=== PATIENT | male | born 1975 ===

== ENCOUNTER 2021-04-09 08:28 | Outpatient (REF) | payer OTHER, SELFPAY ==
[2021-04-09 11:46] LABS: Hematocrit 47.1 % (42.0-52.0); Hemoglobin 15.8 g/dl (14.0-18.0); Mean Corpuscular HGB Conc 33.5 g/dl (31.0-36.0); Mean Corpuscular Hemoglobin 29.9 pg (27.0-33.0); Mean Platelet Volume 11.1 fL (9.4-12.4); Platelet Count 267 X10*3/uL (160-400); Red Blood Count 5.29 X10*6/uL (4.60-5.80); Red Cell Distribution Width 13.1 % (11.0-16.0); White Blood Count 6.7 X10*3/uL (4.8-10.8)
[2021-04-09 12:38] LABS: Alanine Aminotransferase 35 U/L (0-40); Albumin Level 4.2 g/dL (3.5-5.0); Alkaline Phosphatase 92 U/L (39-117); Anion Gap 13 (12-20); Aspartate Amino Transferase 23 U/L (5-37); Bilirubin Total 0.9 mg/dL (0.0-1.0); Blood Urea Nitrogen 15 mg/dL (9-16); Calcium 9.8 mg/dL (8.4-10.2); Carbon Dioxide 26 mmol/L (22-29); Chloride 105 mmol/L (96-108); Cholesterol 186 mg/dL; Estimated Glomerular Filt Rate > 60; Glucose Fasting 88 mg/dL (60-99); HDL Cholesterol 34 mg/dL; LDL Cholesterol Calculated 110 mg/dl; Potassium 4.3 mmol/L (3.3-5.1); Sodium 140 mmol/L (135-145); Total Protein 7.6 g/dL (6.5-8.0); Triglycerides 213 mg/dL
== END 2021-04-09 08:29 | disposition home or self-care (01) ==
LOC: HO.HMGCLDS 08:28
PROVIDERS: PCP Internal Medicine; Visit Provider Internal Medicine
DX: E78.5 Hyperlipidemia, unspecified (principal)
CPT/HCPCS: 36415; 80053; 80061; 85027

== ENCOUNTER 2022-01-22 10:00 | Outpatient (REF) | payer OTHER, SELFPAY ==
[2022-01-22 11:43] LABS: Cholesterol 225 mg/dL; HDL Cholesterol 40 mg/dL; LDL Cholesterol Calculated 154 mg/dl; Triglycerides 155 mg/dL
== END 2022-01-22 10:01 | disposition home or self-care (01) ==
LOC: HO.HMGCLDS 10:00
PROVIDERS: PCP Internal Medicine; Visit Provider Internal Medicine
DX: E78.5 Hyperlipidemia, unspecified (principal)
CPT/HCPCS: 36415; 80061

== ENCOUNTER 2023-06-09 07:37 | Outpatient (AMB) | payer OTHER, SELFPAY ==
--- NOTE | 2023-06-09 08:01 | MHC.PC.OV ---
Vital Signs 06/09/23 08:02 Height 5 ft 10 in Weight 203 lb BMI 29.1 BP 144/94 H Blood Pressure Location Lt brachial Position Sitting Pulse 79 Pulse Source Pulse Oximeter Pulse Oximetry (%) 96 Oxygen Delivery Method Room Air Intake Visit Reasons: Blocked ear Intake Note: Pt is here today for a PE. Pt states that he has R ear blocked for last 2 months. Allergies No Known Allergies Allergy (Verified 06/09/23 08:05) Medication List - Last Reconciled 06/09/23 by Therese Sheridan MD lorazepam 1 mg PO DAILY PRN pravastatin 20 mg PO DAILY Tobacco use date assessed: 06/09/23 Dental Screening Dental Screen Date: 06/09/23 Did you have a dental visit in the last 12 months?: Yes Did you have a dental problem in the last 6 months where you did not have access to dental care?: No Was dental information given to patient?: Patient has dentist HPI Blocked ear HPI Details Pt presents for PE. Pt c/o persistent blocked right ear and decreased hearing for 6 weeks since URI. Pt took steroids for 4 days which helped for 1 day. [facility] [place] Medical History (Updated 06/09/23 @ 08:36 by Therese Sheridan MD) Annual physical exam Hyperlipidemia Surgical History No pertinent past surgical history Family History Father No problems noted. Mother No problems noted. Brother Cardiomyopathy Social History Housing: House Patient Tobacco Use Status: Current someday Tobacco user Tobacco use type: Cigarette Cigarettes Per Day: 3 e-Cigarette/Vaping Use: Never Used Current occupational status: employed Cognitive needs: No Hearing needs: No Vision needs: No Questionnaire PHQ-9 Over the last 2 weeks, how often have you been bothered by any of the following problems? 1. Little interest or pleasure in doing things: not at all 2. Feeling down, depressed, or hopeless: not at all 3. Trouble falling or staying asleep, or sleeping too much: not at all 4. Feeling tired or having little energy: not at all 5. Poor appetite or overeating: not at all 6. Feeling bad about yourself - or that you are a failure or have let yourself or your family down: not at all 7. Trouble concentrating on things, such as reading the newspaper or watching television: not at all 8. Moving or speaking so slowly that other people could have noticed. Or the opposite - being so fidgety or restless that you have been moving around a lot more than usual: not at all 9. Thoughts that you would be better off or of hurting yourself in some way: not at all Total score: 0 Depression Screening Interpretation: Negative Depression Screening Done: Yes Source: Developed by Drs. Kit Baptiste, Francia Sol, Adal Ferraro and colleagues, with an educational maria teresa from [employer] ([employer]). Thrive Questionnaire Date Thrive assessed: 06/09/23 I am a: Patient What is your living situation today?: I have a steady place to live Within the past 12 months, did the food you bought not last and you didn't have the money to get more?: Never true Within the past 12 months, did you worry whether your food would run out before you got money to buy more?: Never true Do you have trouble paying for medicines?: No Do you have trouble getting transportation to medical appointments?: No Do you have trouble paying your heating and electricity bill?: No Do you have trouble taking care of your child, family member or friend?: No Do you have trouble with day-to-day activities such as bathing, preparing meals, shopping, managing finances, etc.?: No Are you currently unemployed and looking for a job?: No Are you interested in more education?: No THRIVE Score: 0 AUDIT C Alcohol Use Questionnaire (AUDIT-C) 1. How often do you have a drink containing alcohol?: Monthly or less 2. How many drinks containing alcohol do you have on a typical day when you are drinking?: 1 or 2 3. How often do you have six or more drinks on one occasion?: Never Total Score: 1 MADDIE-7 AMB Questionnaire MADDIE-7 Date MADDIE - 7 assessed: 06/09/23 Feeling nervous, anxious, or on edge: 0 = Not at all Not being able to stop or control worryin = Not at all Worrying too much about different things: 0 = Not at all Trouble relaxin = Not at all Being so restless that it is hard to sit still: 0 = Not at all Becoming easily annoyed or irritable: 0 = Not at all Feeling afraid as if something awful might happen: 0 = Not at all Total MADDIE-7 score (0-4 normal; 5-9 mild; 10-14 moderate; 15-21 severe): 0 Source: Developed by Drs. Kit Baptiste, Francia Sol, Adal Ferraro and colleagues, with an educational maria teresa from [employer] ([employer]). Review of Systems Const All systems reviewed & are unremarkable except as noted in HPI and below Reports no additional complaints Eyes Reports no additional complaints ENT Reports no additional complaints Card Reports no additional complaints Resp Reports no additional complaints GI Reports no additional complaints Reports no additional complaints Musc Reports no additional complaints Physical exam (Primary Care) Vital Signs: Last Vital Signs Pulse 79 06/09/23 08:02 BP 144/94 H 06/09/23 08:02 Pulse Ox 96 06/09/23 08:02 Oxygen Delivery Method Room Air 06/09/23 08:02 BMI result Body Mass Index 29.1 Tobacco/Smoking Status: Tobacco use Status Tobacco use date assessed 06/09/23 06/09/23 08:08 Patient Tobacco Use Status Current someday Tobacco 06/09/23 08:08 Tobacco use type Cigarette 06/09/23 08:08 e-Cigarette/Vaping Use Never Used 06/09/23 08:02 PHQ-9: PHQ-9 Score PHQ-9: Total score 0 06/09/23 08:08 Depression Screening Interpretation: Negative Thrive Assessment: Date of Thrive Assessment Date Thrive assessed 06/09/23 06/09/23 08:08 Const General: no acute distress HENMT Head: Yes normal to inspection Ears: TM's normal bilaterally, no periauricular adenopathy and Quintana (Lateralized in the right ear) General nose exam: Normal external nose present Face and sinus: Yes normal facial exam Mouth: Normal oral and palatal mucosa present Throat: Yes posterior oropharynx normal Eyes General: appearance normal, both eyes and all related structures Neck Neck: Yes no lymphadenopathy and Yes supple Resp Effort & Inspection: normal respiratory effort Auscultation: clear to auscultation bilaterally Cardio Rhythm: regular rhythm Heart sounds: S1 normal heart sound present and S2 normal heart sound present GI Inspection: Yes normal to inspection Palpation (GI): Soft to palpation Percussion: Yes normal to percussion Auscultation: normal bowel sounds Assessment and Plan Assessment & Plan (1) Annual physical exam: Code(s): Z00.00 - Encounter for general adult medical examination without abnormal findings Plan: Well-balanced diet regular physical activity discussed with the patient (2) Hyperlipidemia: Comment: Patient has stopped taking pravastatin 6 months ago Code(s): E78.5 - Hyperlipidemia, unspecified Plan: Low-cholesterol diet regular physical activity discussed with the patient. He will return for fasting blood (3) HTN (hypertension): Code(s): I10 - Essential (primary) hypertension Plan: Low-sodium diet regular physical activity discussed with the patient lisinopril 5 mg will be started follow-up in 1 month (4) Hearing loss associated with syndrome of right ear: Code(s): H91.91 - Unspecified hearing loss, right ear Plan: For Eustachian tube dysfunction prednisone taper is prescribed. patient was advised to start taking antihistamine and will be referred to ENT Orders: Orders Comprehensive [place]. Panel Fast Today E78.5 - Hyperlipidemia, unspecified, I10 - Essential (primary) hypertension, Z00.00 - Encounter for general adult medical examination without abnormal findings TSH reflex Free T4 Today E78.5 - Hyperlipidemia, unspecified, I10 - Essential (primary) hypertension, Z00.00 - Encounter for general adult medical examination without abnormal findings Complete Blood Count Auto Diff Today E78.5 - Hyperlipidemia, unspecified, I10 - Essential (primary) hypertension, Z00.00 - Encounter for general adult medical examination without abnormal findings Lipid Panel Today E78.5 - Hyperlipidemia, unspecified, I10 - Essential (primary) hypertension, Z00.00 - Encounter for general adult medical examination without abnormal findings Referrals Ear/Nose/Throat Referral H91.91 - Unspecified hearing loss, right ear Medications: New prednisone Four tablets p.o. q.d. for 3 days then 3 tablets p.o. q.d. for 3 days then 2 tablets p.o. q.d. for 3 days then 1 tablet p.o. q.d. for 3 days 30 tabs 0RF lisinopril 5 mg PO DAILY 90 tabs 0RF Discontinued lorazepam Discontinued Reason: Doctor's Order 1 mg PO DAILY PRN 30 tabs 0RF anxiety Coding Level of Care Code Est Pt Prev Care 40-64y(67396) Diagnoses Annual physical exam Z00.00 Hyperlipidemia E78.5 HTN (hypertension) I10 Hearing loss associated with syndrome of right ear H91.91
[2023-06-09 08:02] VITALS: BP 144/94; PULSE 79; O2SAT 96; BMI 29.1
== END 2023-06-09 08:39 | disposition home or self-care (01) ==
PROVIDERS: PCP Internal Medicine; Visit Provider Internal Medicine
DX: Z00.00 Encounter for general adult medical examination without abnormal findings (principal); E78.5 Hyperlipidemia, unspecified; I10 Essential (primary) hypertension; H91.91 Unspecified hearing loss, right ear
CPT/HCPCS: 99396

== ENCOUNTER 2023-07-09 08:06 | Outpatient (REF) | payer OTHER, SELFPAY ==
[2023-07-09 11:38] LABS: MANUAL DIFF FLAG NO
[2023-07-09 11:43] LABS: Basophils Percent Auto 0.7 % (0-2); Eosinophils Absolute Auto 0.2 X10*3/uL (0.0-0.4); Eosinophils Percent Auto 3.3 % (0-4); Hematocrit 47.7 % (42.0-52.0); Imm Gran Abs Auto 0.02 X10*3/uL (0.00-0.03); Imm Gran Pct Auto 0.3 % (0.0-0.4); Lymphocytes Absolute Auto 2.1 X10*3/uL (1.2-4.9); Lymphocytes Percent Auto 35.3 % (20-40); Mean Corpuscular HGB Conc 33.5 g/dl (31.0-36.0); Mean Corpuscular Hemoglobin 30.1 pg (27.0-33.0); Mean Corpuscular Volume 89.7 fL (80.0-98.0); Mean Platelet Volume 10.9 fL (9.4-12.4); Monocytes Absolute Auto 0.6 X10*3/uL (0.1-1.2); Monocytes Percent Auto 9.7 % (2-11); Neutrophils Absolute Auto 3.1 x10*3/uL (2.0-8.3); Neutrophils Percent Auto 50.7 % (45-73); Platelet Count 256 X10*3/uL (160-400); Red Blood Count 5.32 X10*6/uL (4.60-5.80); Red Cell Distribution Width 13.7 % (11.0-16.0)
[2023-07-09 12:18] LABS: Alanine Aminotransferase 41 U/L (0-40); Albumin Level 4.1 g/dL (3.5-5.0); Alkaline Phosphatase 70 U/L (39-117); Anion Gap 11 (12-20); Aspartate Amino Transferase 25 U/L (5-37); Bilirubin Total 0.7 mg/dL (0.0-1.0); Blood Urea Nitrogen 20 mg/dL (9-16); Calcium 9.7 mg/dL (8.4-10.2); Carbon Dioxide 26 mmol/L (22-29); Chloride 105 mmol/L (96-108); Cholesterol 248 mg/dL (<200); Estimated Glomerular Filt Rate > 60; Glucose Fasting 88 mg/dL (60-99); HDL Cholesterol 35 mg/dL (>40); LDL Cholesterol Calculated 191 mg/dL (<100); Potassium 4.1 mmol/L (3.3-5.1); Sodium 138 mmol/L (135-145); Total Protein 7.6 g/dL (6.5-8.0); Triglycerides 113 mg/dL (<150)
[2023-07-09 12:19] LABS: TSH reflex Free T4 1.05 uIU/mL (0.32-4.0)
== END 2023-07-09 08:07 | disposition home or self-care (01) ==
LOC: HO.HMGCLDS 08:06
PROVIDERS: PCP Internal Medicine; Visit Provider Internal Medicine
DX: Z00.00 Encounter for general adult medical examination without abnormal findings (principal); E78.5 Hyperlipidemia, unspecified; I10 Essential (primary) hypertension
CPT/HCPCS: 36415; 80053; 80061; 84443; 85025

== ENCOUNTER 2023-07-15 11:15 | Outpatient (AMB) | payer OTHER, SELFPAY ==
--- NOTE | 2023-07-15 11:17 | MHC.PC.OV ---
Vital Signs 07/15/23 11:23 Height 5 ft 10 in Weight 205 lb BMI 29.4 BP 126/84 Blood Pressure Location Lt brachial Position Sitting Pulse 68 Pulse Source Pulse Oximeter Pulse Oximetry (%) 98 Oxygen Delivery Method Room Air Intake Visit Reasons: 1 month follow up Intake Note: Pt is here today for a follow up visit on BP. Allergies No Known Allergies Allergy (Verified 06/09/23 08:05) Medication List - Last Reconciled 07/15/23 by Therese Sheridan MD fish oil-dha-epa PO Tobacco use date assessed: 06/09/23 HPI 1 month follow up HPI Details Patient presents for the follow-up on hypertension hyperlipidemia. He has not been taking medications and is trying to change diet increase physical activity and lose weight. [facility] Medical History (Updated 07/15/23 @ 11:54 by Therese Sheridan MD) Annual physical exam Hyperlipidemia Surgical History No pertinent past surgical history Family History Father No problems noted. Mother No problems noted. Brother Cardiomyopathy Social History Housing: House Patient Tobacco Use Status: Current someday Tobacco user Tobacco use type: Cigarette Cigarettes Per Day: 3 e-Cigarette/Vaping Use: Never Used Current occupational status: employed Cognitive needs: No Hearing needs: No Vision needs: No Questionnaire Thrive Questionnaire Date Thrive assessed: 06/09/23 MADDIE-7 AMB Questionnaire MADDIE-7 Date MADDIE - 7 assessed: 06/09/23 Source: Developed by Drs. Kit Baptiste, Francia Sol, Adal Ferraro and colleagues, with an educational maria teresa from [employer]. Review of Systems Const All systems reviewed & are unremarkable except as noted in HPI and below Reports no additional complaints Eyes Reports no additional complaints ENT Reports no additional complaints Card Reports no additional complaints Resp Reports no additional complaints GI Reports no additional complaints Reports no additional complaints Physical exam (Primary Care) Vital Signs: Last Vital Signs Pulse 68 07/15/23 11:23 BP 126/84 07/15/23 11:23 Pulse Ox 98 07/15/23 11:23 Oxygen Delivery Method Room Air 07/15/23 11:23 BMI result Body Mass Index 29.4 Tobacco/Smoking Status: Tobacco use Status Tobacco use date assessed 06/09/23 07/15/23 11:17 Patient Tobacco Use Status Current someday Tobacco 07/15/23 11:17 Tobacco use type Cigarette 07/15/23 11:17 e-Cigarette/Vaping Use Never Used 07/15/23 11:17 Thrive Assessment: Date of Thrive Assessment Date Thrive assessed 06/09/23 07/15/23 11:17 Const General: no acute distress HENMT Head: Yes normal to inspection Eyes General: appearance normal, both eyes and all related structures Neck Neck: Yes supple Resp Effort & Inspection: normal respiratory effort Auscultation: clear to auscultation bilaterally Cardio Rhythm: regular rhythm Heart sounds: S1 normal heart sound present and S2 normal heart sound present Assessment and Plan Assessment & Plan (1) HTN (hypertension): Code(s): I10 - Essential (primary) hypertension Plan: Low-sodium diet increase physical activity weight loss discussed with the patient. Follow-up in 4 months (2) Hyperlipidemia: Comment: Patient stopped taking pravastatin Code(s): E78.5 - Hyperlipidemia, unspecified Plan: Low-cholesterol diet increase physical activity weight loss discussed, check lipid profile in 4 months Orders: Orders Lipid Panel 4 Months E78.5 - Hyperlipidemia, unspecified, I10 - Essential (primary) hypertension Comprehensive [place]. Panel Fast 4 Months E78.5 - Hyperlipidemia, unspecified, I10 - Essential (primary) hypertension Complete Blood Count Auto Diff 4 Months E78.5 - Hyperlipidemia, unspecified, I10 - Essential (primary) hypertension Medications: Discontinued prednisone Discontinued Reason: Doctor's Order Four tablets p.o. q.d. for 3 days then 3 tablets p.o. q.d. for 3 days then 2 tablets p.o. q.d. for 3 days then 1 tablet p.o. q.d. for 3 days 30 tabs 0RF pravastatin Discontinued Reason: Doctor's Order 20 mg PO DAILY 90 tabs 3RF lisinopril Discontinued Reason: Doctor's Order 5 mg PO DAILY 90 tabs 0RF Coding Level of Care Code Est Pt Level 3 (97931) Diagnoses HTN (hypertension) I10 Hyperlipidemia E78.5
[2023-07-15 11:23] VITALS: BP 126/84; PULSE 68; O2SAT 98; BMI 29.4
== END 2023-07-15 12:03 | disposition home or self-care (01) ==
PROVIDERS: PCP Internal Medicine; Visit Provider Internal Medicine
DX: I10 Essential (primary) hypertension (principal); E78.5 Hyperlipidemia, unspecified
CPT/HCPCS: 99213

== ENCOUNTER 2023-11-18 08:10 | Outpatient (REF) | payer OTHER, SELFPAY ==
[2023-11-18 10:19] LABS: MANUAL DIFF FLAG NO
[2023-11-18 10:28] LABS: Basophils Percent Auto 0.6 % (0-2); Eosinophils Absolute Auto 0.3 X10*3/uL (0.0-0.4); Eosinophils Percent Auto 4.5 % (0-4); Hematocrit 47.4 % (42.0-52.0); Hemoglobin 16.4 g/dl (14.0-18.0); Imm Gran Abs Auto 0.03 X10*3/uL (0.00-0.03); Imm Gran Pct Auto 0.5 % (0.0-0.4); Lymphocytes Absolute Auto 1.9 X10*3/uL (1.2-4.9); Lymphocytes Percent Auto 30.9 % (20-40); Mean Corpuscular HGB Conc 34.6 g/dl (31.0-36.0); Mean Corpuscular Hemoglobin 30.4 pg (27.0-33.0); Mean Corpuscular Volume 87.9 fL (80.0-98.0); Mean Platelet Volume 10.5 fL (9.4-12.4); Monocytes Absolute Auto 0.6 X10*3/uL (0.1-1.2); Monocytes Percent Auto 9.8 % (2-11); Neutrophils Absolute Auto 3.4 x10*3/uL (2.0-8.3); Neutrophils Percent Auto 53.7 % (45-73); Platelet Count 251 X10*3/uL (160-400); Red Blood Count 5.39 X10*6/uL (4.60-5.80); Red Cell Distribution Width 13.4 % (11.0-16.0); White Blood Count 6.3 X10*3/uL (4.8-10.8)
[2023-11-18 10:49] LABS: Alanine Aminotransferase 50 U/L (0-40); Alkaline Phosphatase 80 U/L (39-117); Anion Gap 12 (12-20); Aspartate Amino Transferase 33 U/L (5-37); Bilirubin Total 0.6 mg/dL (0.0-1.0); Blood Urea Nitrogen 19 mg/dL (9-16); Calcium 9.5 mg/dL (8.4-10.2); Carbon Dioxide 25 mmol/L (22-29); Chloride 106 mmol/L (96-108); Cholesterol 227 mg/dL (<200); Estimated Glomerular Filt Rate > 60; Glucose Fasting 101 mg/dL (60-99); HDL Cholesterol 36 mg/dL (>40); LDL Cholesterol Calculated 150 mg/dL (<100); Potassium 4.1 mmol/L (3.3-5.1); Sodium 139 mmol/L (135-145); Total Protein 7.6 g/dL (6.5-8.0); Triglycerides 205 mg/dL (<150)
== END 2023-11-18 08:11 | disposition home or self-care (01) ==
LOC: HO.HMGCLDS 08:10
PROVIDERS: PCP Internal Medicine; Visit Provider Internal Medicine
DX: I10 Essential (primary) hypertension (principal); E78.5 Hyperlipidemia, unspecified
CPT/HCPCS: 36415; 80053; 80061; 85025

== ENCOUNTER 2023-11-19 08:10 | Outpatient (AMB) | payer OTHER, SELFPAY ==
[2023-11-19 08:12] VITALS: BP 138/86; PULSE 75; O2SAT 96; BMI 29.0
--- NOTE | 2023-11-19 08:12 | MHC.PC.OV ---
Vital Signs 11/19/23 08:12 Height 5 ft 10 in Weight 202 lb BMI 29.0 BP 138/86 Blood Pressure Location Lt brachial Position Sitting Pulse 75 Pulse Source Pulse Oximeter Pulse Oximetry (%) 96 Oxygen Delivery Method Room Air Intake Visit Reasons: Followup HTN Intake Note: Pt is here today for a follow up visit on HTN. Allergies No Known Allergies Allergy (Verified 11/19/23 08:14) Medication List - Last Reconciled 11/19/23 by Therese Sheridan MD fish oil-dha-epa PO Tobacco use date assessed: 11/19/23 Dental Screening Dental Screen Date: 11/19/23 Did you have a dental visit in the last 12 months?: Yes Did you have a dental problem in the last 6 months where you did not have access to dental care?: No Was dental information given to patient?: Patient has dentist HPI Followup HTN HPI Details Pt presents for f/u. pt c/o nasal and sinus congestion, R ear feels blocked, with pressure and discomfort for 2 weeks started after plane trip. Patient denies fever chills. He has been taking Zyrtec for last 2 weeks. [facility] Medical History (Updated 11/19/23 @ 09:31 by Therese Sheridan MD) Annual physical exam Hyperlipidemia Surgical History No pertinent past surgical history Family History Father No problems noted. Mother No problems noted. Brother Cardiomyopathy Social History Housing: House Patient Tobacco Use Status: Current someday Tobacco user Tobacco use type: Cigarette Cigarettes Per Day: 3 e-Cigarette/Vaping Use: Never Used service: No Current occupational status: employed Cognitive needs: No Hearing needs: No Vision needs: No Questionnaire PHQ-9 Over the last 2 weeks, how often have you been bothered by any of the following problems? 1. Little interest or pleasure in doing things: several days 2. Feeling down, depressed, or hopeless: not at all 3. Trouble falling or staying asleep, or sleeping too much: not at all 4. Feeling tired or having little energy: not at all 5. Poor appetite or overeating: not at all 6. Feeling bad about yourself - or that you are a failure or have let yourself or your family down: not at all 7. Trouble concentrating on things, such as reading the newspaper or watching television: not at all 8. Moving or speaking so slowly that other people could have noticed. Or the opposite - being so fidgety or restless that you have been moving around a lot more than usual: not at all 9. Thoughts that you would be better off or of hurting yourself in some way: not at all Total score: 1 Depression Screening Interpretation: Negative Depression Screening Done: Yes Source: Developed by Drs. Kit Baptiste, Francia Sol, Adal Ferraro and colleagues, with an educational maria teresa from [employer]. Thrive Questionnaire Date Thrive assessed: 11/19/23 I am a: Patient What is your living situation today?: I have a steady place to live Within the past 12 months, did the food you bought not last and you didn't have the money to get more?: Never true Within the past 12 months, did you worry whether your food would run out before you got money to buy more?: Never true Do you have trouble paying for medicines?: No Do you have trouble getting transportation to medical appointments?: No Do you have trouble paying your heating and electricity bill?: No Do you have trouble taking care of your child, family member or friend?: No Do you have trouble with day-to-day activities such as bathing, preparing meals, shopping, managing finances, etc.?: No Are you currently unemployed and looking for a job?: No Are you interested in more education?: No Please select the resources that you would like help with: Housing/Halfway Currently or been in a relationship where the following occur: I choose not to answer THRIVE Score: 0 AUDIT C Alcohol Use Questionnaire (AUDIT-C) 1. How often do you have a drink containing alcohol?: 2-4 times a month 2. How many drinks containing alcohol do you have on a typical day when you are drinking?: 3 or 4 3. How often do you have six or more drinks on one occasion?: Less than monthly Total Score: 4 MADDIE-7 AMB Questionnaire MADDIE-7 Date MADDIE - 7 assessed: 11/19/23 Feeling nervous, anxious, or on edge: 0 = Not at all Not being able to stop or control worryin = Not at all Worrying too much about different things: 0 = Not at all Trouble relaxin = Not at all Being so restless that it is hard to sit still: 0 = Not at all Becoming easily annoyed or irritable: 0 = Not at all Feeling afraid as if something awful might happen: 0 = Not at all Total MADDIE-7 score (0-4 normal; 5-9 mild; 10-14 moderate; 15-21 severe): 0 Source: Developed by Drs. Kit Baptiste, Francia Sol, Adal Ferraro and colleagues, with an educational maria teresa from [employer]. Review of Systems Const All systems reviewed & are unremarkable except as noted in HPI and below Eyes Reports no additional complaints ENT Reports no additional complaints Card Reports no additional complaints Resp Reports no additional complaints GI Reports no additional complaints Reports no additional complaints Physical exam (Primary Care) Vital Signs: Last Vital Signs Pulse 75 11/19/23 08:12 BP 138/86 11/19/23 08:12 Pulse Ox 96 11/19/23 08:12 Oxygen Delivery Method Room Air 11/19/23 08:12 BMI result Body Mass Index 29.0 Tobacco/Smoking Status: Tobacco use Status Tobacco use date assessed 11/19/23 11/19/23 08:17 Patient Tobacco Use Status Current someday Tobacco 11/19/23 08:17 Tobacco use type Cigarette 11/19/23 08:17 e-Cigarette/Vaping Use Never Used 11/19/23 08:17 PHQ-9: PHQ-9 Score PHQ-9: Total score 1 11/19/23 08:17 Depression Screening Interpretation: Negative Thrive Assessment: Date of Thrive Assessment Date Thrive assessed 11/19/23 11/19/23 08:17 Currently or been in a relationship where the following occur: I choose not to answer Const General: no acute distress HENMT Head: Yes normal to inspection Ears: TM normal on the right (erythema and bulging) General nose exam: Abnormal mucous membranes and turbinates present boggy and erythematous Face and sinus: Yes normal facial exam Mouth: Normal oral and palatal mucosa present Throat: Yes posterior oropharynx normal Neck Neck: Yes no lymphadenopathy and Yes supple Resp Effort & Inspection: normal respiratory effort Auscultation: clear to auscultation bilaterally Cardio Rhythm: regular rhythm Heart sounds: S1 normal heart sound present and S2 normal heart sound present Assessment and Plan Assessment & Plan (1) Annual physical exam: Code(s): Z00.00 - Encounter for general adult medical examination without abnormal findings (2) HTN (hypertension): Code(s): I10 - Essential (primary) hypertension Plan: restart Lisinopril 10 mg, f/u 3 months (3) Sinusitis: Code(s): J32.9 - Chronic sinusitis, unspecified Plan: Z-Fidel and prednisone taper as prescribed. Patient was advised to continue Zyrtec and Flonase nasal spray he has an appointment with ENT next month (4) Hyperlipidemia: Comment: Patient stopped taking pravastatin Code(s): E78.5 - Hyperlipidemia, unspecified Plan: Restart pravastatin 20 mg a day follow-up in 3 months with fasting labs before Orders: Orders Comprehensive [place]. Panel Fast 3 Months I10 - Essential (primary) hypertension, Z00.00 - Encounter for general adult medical examination without abnormal findings Lipid Panel 3 Months I10 - Essential (primary) hypertension, Z00.00 - Encounter for general adult medical examination without abnormal findings Medications: New prednisone 2 tabl qd x 4, then 1 tabl x 4 20 mg PO DAILY 12 tabs 0RF lisinopril 10 mg PO DAILY 90 tabs 0RF azithromycin For 250 mg dose pack: take 500 mg today (day 1), then 250 mg for 4 days (days 2-5) PO 6 tabs 0RF pravastatin 20 mg PO DAILY 90 tabs 0RF Coding Level of Care Code Est Pt Level 4 (17998) Diagnoses Annual physical exam Z00.00 HTN (hypertension) I10 Sinusitis J32.9 Hyperlipidemia E78.5
== END 2023-11-19 09:32 | disposition home or self-care (01) ==
PROVIDERS: PCP Internal Medicine; Visit Provider Internal Medicine
DX: Z00.00 Encounter for general adult medical examination without abnormal findings (principal); I10 Essential (primary) hypertension; J32.9 Chronic sinusitis, unspecified; E78.5 Hyperlipidemia, unspecified
CPT/HCPCS: 99214

== ENCOUNTER 2024-04-05 08:36 | Outpatient (REF) | payer OTHER, SELFPAY ==
[2024-04-05 11:36] LABS: Alanine Aminotransferase 53 U/L (0-40); Albumin Level 4.2 g/dL (3.5-5.0); Alkaline Phosphatase 70 U/L (39-117); Anion Gap 11 (12-20); Aspartate Amino Transferase 39 U/L (5-37); Bilirubin Total 0.9 mg/dL (0.0-1.0); Blood Urea Nitrogen 16 mg/dL (9-16); Calcium 9.3 mg/dL (8.4-10.2); Carbon Dioxide 28 mmol/L (22-29); Chloride 105 mmol/L (96-108); Cholesterol 222 mg/dL (<200); Estimated Glomerular Filt Rate > 60; Glucose Fasting 87 mg/dL (60-99); HDL Cholesterol 37 mg/dL (>40); LDL Cholesterol Calculated 157 mg/dL (<100); Sodium 140 mmol/L (135-145); Total Protein 7.4 g/dL (6.5-8.0); Triglycerides 141 mg/dL (<150)
== END 2024-04-05 08:37 | disposition home or self-care (01) ==
LOC: HO.HMGCLDS 08:36
PROVIDERS: PCP Internal Medicine; Visit Provider Internal Medicine
DX: Z00.00 Encounter for general adult medical examination without abnormal findings (principal); I10 Essential (primary) hypertension
CPT/HCPCS: 36415; 80053; 80061

== ENCOUNTER 2024-04-06 09:12 | Outpatient (AMB) | payer OTHER, SELFPAY ==
[2024-04-06 09:14] VITALS: BP 120/64; PULSE 72; O2SAT 98; BMI 29.4
--- NOTE | 2024-04-06 09:14 | A.OFFPC_ITS ---
Vital Signs 04/06/24 09:14 Height 5 ft 10 in Weight 205 lb BMI 29.4 BP 120/64 Blood Pressure Location Lt brachial Pulse 72 Pulse Source Pulse Oximeter Pulse Oximetry (%) 98 Oxygen Delivery Method Room Air Intake Visit Reasons: 3MoFollowUp Allergies No Known Allergies Allergy (Verified 04/06/24 09:16) Medication List - Last Reconciled 04/06/24 by Therese Sheridan MD atorvastatin (Lipitor) 20 mg PO BEDTIME fish oil-dha-epa PO lisinopril 5 mg PO DAILY Tobacco use date assessed: 04/06/24 Dental Screening Dental Screen Date: 04/06/24 Did you have a dental visit in the last 12 months?: Yes Did you have a dental problem in the last 6 months where you did not have access to dental care?: Yes Was dental information given to patient?: Patient has dentist HPI 3MoFollowUp HPI Details Pt presents for HTN and hyperlipid, stable on meds. [facility] Medical History Annual physical exam Hyperlipidemia Surgical History No pertinent past surgical history Family History Father No problems noted. Mother No problems noted. Brother Cardiomyopathy Social History Housing: House Patient Tobacco Use Status: Current someday Tobacco user Tobacco use type: Cigarette Cigarettes Per Day: 3 e-Cigarette/Vaping Use: Never Used service: No Current occupational status: employed Cognitive needs: No Hearing needs: No Vision needs: No Questionnaire PHQ-9 Over the last 2 weeks, how often have you been bothered by any of the following problems? 2. Feeling down, depressed, or hopeless: not at all Source: Developed by Drs. Kit Baptiste, Francia Sol, Adal Ferraro and colleagues, with an educational maria teresa from [employer]. Thrive Questionnaire Date Thrive assessed: 11/19/23 I am a: Patient What is your living situation today?: I have a steady place to live Within the past 12 months, did the food you bought not last and you didn't have the money to get more?: Never true Within the past 12 months, did you worry whether your food would run out before you got money to buy more?: Never true Do you have trouble paying for medicines?: No Do you have trouble getting transportation to medical appointments?: No Do you have trouble paying your heating and electricity bill?: No Do you have trouble taking care of your child, family member or friend?: No Do you have trouble with day-to-day activities such as bathing, preparing meals, shopping, managing finances, etc.?: No Are you currently unemployed and looking for a job?: No Are you interested in more education?: No Please select the resources that you would like help with: None Currently or been in a relationship where the following occur: I choose not to answer THRIVE Score: 0 MADDIE-7 AMB Questionnaire MADDIE-7 Date MADDIE - 7 assessed: 11/19/23 Source: Developed by Drs. Kit Baptiste, Francia Sol, Adal Ferraro and colleagues, with an educational maria teresa from [employer]. Review of Systems Const All systems reviewed & are unremarkable except as noted in HPI and below Reports no additional complaints Eyes Reports no additional complaints ENT Reports no additional complaints Card Reports no additional complaints Resp Reports no additional complaints GI Reports no additional complaints Reports no additional complaints Musc Reports no additional complaints Physical exam (Primary Care) Vital Signs: Last Vital Signs Pulse 72 04/06/24 09:14 BP 120/64 04/06/24 09:14 Pulse Ox 98 04/06/24 09:14 Oxygen Delivery Method Room Air 04/06/24 09:14 BMI result Body Mass Index 29.4 Tobacco/Smoking Status: Tobacco use Status Tobacco use date assessed 04/06/24 04/06/24 09:16 Patient Tobacco Use Status Current someday Tobacco 04/06/24 09:16 Tobacco use type Cigarette 04/06/24 09:16 e-Cigarette/Vaping Use Never Used 04/06/24 09:16 Thrive Assessment: Date of Thrive Assessment Date Thrive assessed 11/19/23 04/06/24 09:16 Currently or been in a relationship where the following occur: I choose not to answer Const General: no acute distress HENMT Head: Yes normal to inspection Ears: hearing grossly normal bilaterally Mouth: Normal oral and palatal mucosa present Neck Neck: Yes no lymphadenopathy and Yes supple Resp Effort & Inspection: normal respiratory effort Auscultation: clear to auscultation bilaterally Cardio Rhythm: regular rhythm Heart sounds: S1 normal heart sound present and S2 normal heart sound present GI Palpation (GI): Soft to palpation Percussion: Yes normal to percussion Coding Level of Care Code Est Pt Level 4 (04785) Diagnoses Hyperlipidemia E78.5 HTN (hypertension) I10 Assessment & Plan Assessment & Plan (1) Hyperlipidemia: Comment: Patient stopped taking pravastatin Code(s): E78.5 - Hyperlipidemia, unspecified Category: Medical Plan: change Pravastain to Lipitor 20 mg (2) HTN (hypertension): Code(s): I10 - Essential (primary) hypertension Category: Medical Plan: cont Lisinopril Orders: Orders Lipid Panel 3 Months E78.5 - Hyperlipidemia, unspecified, Z00.00 - Encounter for general adult medical examination without abnormal findings IRON PROFILE 3 Months E78.5 - Hyperlipidemia, unspecified, Z00.00 - Encounter for general adult medical examination without abnormal findings Complete Blood Count Auto Diff 3 Months E78.5 - Hyperlipidemia, unspecified, Z00.00 - Encounter for general adult medical examination without abnormal findings Medications: New atorvastatin (Lipitor) 20 mg PO BEDTIME 90 tabs 3RF lisinopril 5 mg PO DAILY 90 tabs 3RF Discontinued pravastatin Discontinued Reason: Doctor's Order 20 mg PO DAILY 90 tabs 0RF
--- OUTSIDE RECORDS SUMMARY | 2024-04-12 16:51 | XMS_ITS | Continuity of Care Document ---
Author Organization [place] - [facility], [facility] Address [address] [place] [address] Care Team Providers Care Detector Car Operator Name Role Phone NANNETTE PANANNA Primary Care Provider Assessment Encounter Date Assessment Date Assessment LastModified by Organization Details LastModified Time 01/25/2024 01/25/2024 Patient with significant environmental allergies. Presently feels somewhat improved with Astelin and Flonase. He is interested in pursuing allergy drop therapy before considering septoplasty, turbinate reduction and repair of his nasal valve. He is scheduled for sleep study end of February. He will contact me after the study so we can review the results when they are available. Risks of allergy drops discussed and all questions answered kurt Not available 01/25/2024 08:37:15 Plan of Treatment Reminders Order Date Submit Date Provider Last Modified By Organization Details Last Modified Time Details Appointments Establish ed- Allergy f-up 6mon 2024 08:30A M CHRISTINA DUVALL MD Not available Not available Not available Lab None recorded. Referral None recorded. Procedures None recorded. Surgeries None recorded. Imaging None recorded. Medication Orders epinephri ne 0.3 mg/0.3 mL injection , auto-inje ctor 2023 024 [facility] #[id number], [address] [facility], [place], [address], 01/25/2024 08:37:48 Patient TargetsNo targets recorded. Patient Instructions Encounter Date Encounter Id Patient Instructions Last Modified By Organization Details Last Modified Time 01/25/2024 [id number] sublingual immunotherapy regimen* [email or web address] Not available 02/02/2024 15:14:40 Reason for Referral None Reported. Problems Name Problem SNOMED Code Status Onset Date Resolution Date Notes Provider Name and Address Organization Details Recorded Time Snoring 13043557 Active 2023 CHRISTINA DUVALL MD [address], [place], [address], [facility] - [facility] 4 09:43:53 Deviated nasal septum 866715910 Active 2023 CHRISTINA DUVALL MD [address], [place], [address], [facility] 4 09:43:59 Allergic rhinitis 88615436 Active 2023 CHRISTINA DUVALL MD [address], [place], [address], [facility] 4 09:44:09 Dysfunction of eustachian tube 04252673 Active 2023 CHRISTINA DUVALL MD [address], [facility] [place], [address], [facility] 4 09:44:28 Sensorineural hearing loss 80785452 Active 2023 ANIYA FENG [address], [facility] [place], [address], [facility] 4 10:10:12 Problem Notes None recorded. Procedures Surgical History Date Name Laterality Status Provider Name and Address Organization Details Recorded Time 01/13/20 24 Allergy Testing-Full completed LEVON SQUIRES [address] [facility], [address], [facility] 01/13/2024 09:31:37 12/31/19 24 Allergy Testing Modified- Quantitative Testing (MQT) Only completed LEVON SQUIRES [address], [place], [address], [place] - [facility] [place] 12/31/2023 12:10:46 12/17/19 24 Comp Audio with Tymps (64164 & 80561) completed MOUNIKA VALLEJO, AUD [address] [facility],[address] [address], [place], [address], [place] - [facility] 12/17/2023 10:09:51 Imaging Results None recorded. Procedure Notes None recorded. Medical Equipment None Reported. Allergies No known drug allergies Medications Name Sig Start Date Stop Date Status Note LastModified by Organization Details LastModified Time amoxicillin 500 mg capsule TAKE 1 CAPSULE BY MOUTH THREE TIMES A DAY 12/16 completed Not Available Not Available Not Available prednisone 10 mg tablet TAKE 4 TABLETS BY MOUTH ONCE A DAY FOR 3 DAYS, THEN 3 FOR 3 DAYS, 2 FOR 3 DAYS, 1 FOR 3 DAYS 12/16 completed Not Available Not Available Not Available azithromyci n 250 mg tablet TAKE 2 TABLETS BY MOUTH TODAY, THEN TAKE 1 TABLET DAILY FOR 4 DAYS DIRECTED 12/16 completed Not Available Not Available Not Available prednisone 20 mg tablet TAKE 2 TABLETS BY MOUTH EVERY DAY FOR 4 DAYS THEN TAKE 1 TABLET BY MOUTH EVERY DAY FOR 4 DAYS 12/16 completed Not Available Not Available Not Available oxycodone-a cetaminophe n 5 mg-325 mg tablet TAKE 1 TABLET BY MOUTH EVERY 4 TO 6 HOURS NEEDED 12/16 completed Not Available Not Available Not Available lisinopril 10 mg tablet TAKE 1 TABLET BY MOUTH EVERY DAY active Not Available Not Available No t Available pravastatin 20 mg tablet TAKE 1 TABLET BY MOUTH EVERY DAY active Not Available Not Available No t Available lisinopril 5 mg tablet TAKE 1 TABLET BY MOUTH EVERY DAY 12/16 completed Not Available Not Available Not Available azelastine 137 mcg (0.1 %) nasal spray SPRAY 2 SPRAYS BY INTRANASA L ROUTE TWICE A DAY active Not Available Not Available No t Available epinephrine 0.3 mg/0.3 mL injection, auto-inject or INJECT 1 PEN BY INJECTION ROUTE FOR 180 DAYS, FOR ANAPHYLAX IS. active Not Available Not Available No t Available ibuprofen 600 mg tablet 1 TABLET EVERY 4 TO 6 HOURS NEEDED 12/16 completed Not Available Not Available Not Available fluticasone propionate 50 mcg/actuati on nasal spray,suspe nsion INSTILL 2 SPRAYS BY INTRANASA L ROUTE EVERY DAY active Not Available Not Available No t Available chlorhexidi ne gluconate 0.12 % mouthwash SWISH AND SPIT 15 ML IN THE MORNING AND IN THE EVENING FOR 2 WEEKS 12/16 completed Not Available Not Available Not Available Vitals Date Recorded Body height Body mass index (BMI) Body weight Provider Name and Address Organization Details Last Updated DateTime 01/25/2024 177.8 cm 28.7 kg/m2 22388.47 g Sussy Gonzalez [place] - [facility] 01/25/2024 08:31:34 Social History None recorded. Functional Status None recorded. Mental Status None recorded. Family History Nothing Reported. Medical History Condition Response Hypertension Y High Cholesterol Y Past Encounters Encounter ID Performer Location Encounter Start Date Encounter Closed Date Diagnosis/Indication Diagnosis SNOMED-CT Code Diagnosis ICD10 Code [id number] LEVON SQUIRES Allergy [address] [address] 12/31/2023 08:51:26 01/07/2024 16:10:31 Allergic rhinitis 65249500 J30.9 [id number] JOSÉ LUIS STEPHANIE A Allergy [address] [address] 01/13/2024 08:45:23 01/13/2024 11:00:10 Allergic rhinitis 75300281 J30.9 [id number] CHRISTINA STOREY MD [facility] of [address] [address] 01/25/2024 08:23:37 01/25/2024 08:40:47 Allergic rhinitis 71865580 J30.9 Deviated nasal septum 12 6100664 J34.2 Snoring 95378970 R06.83 Health Concerns Section Related Observation LastModified by Organization Detai ls LastModified Time None Recorded Concern Status LastModified by Organization Details LastModified Time None Recorded Payers Encounter Date Sequence Insurance Name Policy Number Policy Downs Covered Member ID Downs Member ID Guarantor Name 01/25/2024 1 [facility] [id number] 1 Smita Farah [id number] Smita Farah Notes Date Note Type Note Provider Name and Address Organization Details Recorded Time 01/25/2024 text/html Chronic nasal congestion. Skin testing shows marked environmental allergiesPSG scheduled 02/26/24Continues on Astelin/FP nasal last visitPatient with chronic nasal congestion with 2 bouts of sinusitis this year, chronic intermittent ear fullness, pressure and blockage. Spouse who is a nurse notes increased snoring and daytime fatigue. Examination shows moderate septal deviation to the right side large scalloped tongue, small mouth and narrow airway. CHRISTINA URRUTIA MD [address] [place] [address], [place], [address], [facility] - [facility] 01/25/2024 08:37:49
--- OUTSIDE RECORDS SUMMARY | 2024-04-12 16:51 | XMS_ITS | Continuity of Care Document ---
Author Organization [place] - [facility], Allergy Address [address] [address] Care Team Providers Care Social Worker School Name Role Phone BRADYMARTINJyotiBRYAN Primary Care Provider Assessment Encounter Date Assessment Date Assessment LastModified by Organization Details LastModified Time 02/01/2024 02/01/2024 Patient with a history of allergic rhinitis. Sublingual treatment was initiated today. Epipen teaching was performed. The first dose of immunotherapy was administered in the office and the patient was observed for twenty minutes without adverse reaction. Proper use of the immunotherapy drops was discussed in detail and all questions were answered. [email or web address] Not available 02/01/2024 09:58:58 Plan of Treatment Reminders Order Date Submit Date Provider Last Modified By Organization Details Last Modified Time Details Appointments [facility]- Allergy f-up 6mon 2024 08:30A M CHRISTINA DUVALL MD Not available Not available Not available Lab None recorded . Referral None recorded . Procedures None recorded . Surgeries None recorded . Imaging None recorded . Medication Orders None recorded . Patient TargetsNo targets recorded. Patient InstructionsNo instructions recorded. Reason for Referral None Reported. Problems Name Problem SNOMED Code Status Onset Date Resolution Date Notes Provider Name and Address Organization Details Recorded Time Snoring 52194677 Active 2023 CHRISTINA DUVALL MD [address] [address], [place], [address] [facility] [place] - [facility] 09:43:53 Deviated nasal septum 290823221 Active 2023 CHRISTINA DUVALL MD [address] [address], [place], [address], [facility] - [facility] 4 09:43:59 Allergic rhinitis 17270472 Active 2023 CHRISTINA DUVALL MD [address] [facility] [address] [place], [place], [address], [facility] - [facility] 4 09:44:09 Dysfunction of eustachian tube 01844850 Active 2023 CHRISTINA DUVALL MD [address] [facility] [place], [place], [address], [facility] - [facility] 4 09:44:28 Sensorineural hearing loss 93505246 Active 2023 MOUNIKA VALLEJO AUD [address] [facility] [place], [place], [address], [facility] - [facility] 4 10:10:12 Problem Notes None recorded. Procedures Surgical History Date Name Laterality Status Provider Name and Address Organization Details Recorded Time 01/13/20 24 Allergy Testing-Full completed [facility], [facility] [address] [facility],[address], [address], [facility] 01/13/2024 09:31:37 12/31/19 24 Allergy Testing Modified- Quantitative Testing (MQT) Only completed [facility] A [address] [facility],[address], [address], [facility] 12/31/2023 12:10:46 12/17/19 24 Comp Audio with Tymps (52232 & 08154) completed MOUNIKA VALLEJO AUD [address] [facility],[address] [address], [place], [address], [facility] 12/17/2023 10:09:51 Imaging Results None recorded. [...] height Body mass index (BMI) Body weight Heart rate Systolic blood pressure Diastolic blood pressure Provider Name and Address Organization Details Last Updated DateTime 4 177.8 cm 28.7 kg/m2 17196.4 7 g 74 /min 139 mm[Hg] 93 mm[Hg] GRAYSON BORRERO, RN [address] [place], [address], [facility] - [facility] 09:14:48 Social History None recorded. Functional Status None recorded. Mental Status None recorded. Family History Nothing Reported. Medical History Condition Response Hypertension Y High Cholesterol Y Past Encounters Encounter ID Performer Location Encounter Start Date Encounter Closed Date Diagnosis/Indication Diagnosis SNOMED-CT Code Diagnosis ICD10 Code [id number] LEVON SQUIRES Allergy [address] [place] [address] [place] [address] 01/13/2024 08:45:23 01/13/2024 11:00:10 Allergic rhinitis 26089931 J30.9 [id number] CHRISTINA STOREY MD [facility] [address] [facility] [place] [address] 01/25/2024 08:23:37 01/25/2024 08:40:47 Allergic rhinitis 66882593 J30.9 Deviated nasal septum 12 5967851 J34.2 Snoring 03252117 R06.83 [id number] GRAYSON BORRERO RN Allergy [address] [place] [address] [address] [place] [address] 02/01/2024 08:52:42 02/01/2024 10:00:08 Allergic rhinitis 39749099 J30.9 Health Concerns Section Related Observation LastModified by Organization Detai ls LastModified Time None Recorded Concern Status LastModified by Organization Details LastModified Time None Recorded Payers Encounter Date Sequence Insurance Name Policy Number Policy Downs Covered Member ID Downs Member ID Guarantor Name 02/01/2024 1 [facility] [id number] 1 Smita Farah [id number] Smita Farah
--- OUTSIDE RECORDS SUMMARY | 2024-04-12 16:51 | XMS_ITS | Data Portability ---
Author Organization [place] - [facility], Allergy Address [address] [place] [address] Care Team Providers Care Padded Box Sewer Name Role Phone BRYAN PAN Primary Care Provider Assessment Encounter Date Assessment Date Assessment LastModified by Organization Details LastModified Time 12/17/2023 12/17/2023 Patient with chronic nasal congestion with 2 bouts of sinusitis this year, chronic intermittent ear fullness, pressure and blockage. Spouse who is a nurse notes increased snoring and daytime fatigue. Examination shows moderate septal deviation to the right side large scalloped tongue, small mouth and narrow airway. Arrange for sleep study, allergy testing and consistent trial of fluticasone/Aste jorge nasal sprays. kurt Not available 12/17/2023 10:18:33 01/25/2024 01/25/2024 Patient with significant environmental allergies. [...] allergy drops discussed and all questions answered [email or web address] Not available 01/25/2024 08:37:15 02/01/2024 02/01/2024 Patient with a history of [...] Lab None recorded. Referral None recorded. Procedures allergy testing, skin prick (PROC) 2023 024 [facility], [address] [place] [address], [id number], 12/31/2023 12:06:34 intraderm al allergy skin testing (PROC) 2023 024 [facility], [address] [place] [address], [id number], 12/31/2023 12:06:42 pulmonary function test procedure (PROC) 2023 024 [facility], [address] [place] [address], [id number], 12/31/2023 12:06:56 pulse oximetry (PROC) 2023 024 [facility], [address] [place] [address], [id number], 12/31/2023 12:07:27 polysomno graphy, diagnosti c (PROC) 2023 024 [place] [address] [facility], [address] [place] [address], [id number], 01/20/2024 14:35:08 Surgeries None recorded. Imaging None recorded. Medication Orders azelastin e 137 mcg (0.1 %) nasal spray [address] [facility], [address] [place], [address], 12/17/2023 10:19:19 fluticaso ne propionat e 50 mcg/actua tion nasal spray,cris pension [address] [facility], [address] [facility] [place], [address], 12/17/2023 10:19:20 epinephri ne 0.3 mg/0.3 mL injection , auto-inje ctor [address] [facility], [address] [facility], [place], [address], 01/25/2024 08:37:48 Patient TargetsNo targets recorded. Patient Instructions Encounter Date Encounter Id Patient Instructions Last Modified By Organization Details Last Modified Time 12/31/2023 [id number] Nursing Documentation for Allergy Testing: Ordering Provider {{Dr. Evelio Urrutia*}} Weight:200lbs:??kg : ?? PFT {{Yes* no}} With Bronchodilator {{Yes no*}} Dr. white needed to proceed with allergy testing? {{Yes* No}} {{Dr. vEelio Urrutia*}} ok'd testing {{Yes No Pulmonary Clearance PCP Clearance RAST Yes MQT only if bp at home is normal. 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 She monitors it frequently#}}Histo ry of Asthma:{{Yes No*}} Asthma Meds: ??Last used:?? Asthma exacerbated by: ?? Chance that : {{Yes No Not Sure N/A*}} Fear of needles: {{Yes No*}} Regular medications reviewed in Computer: {{Yes* No}} Medication allergies: {{Reviewed NKDA*}} Antihistamine use: {{Yes* No}} Medications used:azelastine ?? Food Allergies: no ?? Any foods make your mouth feeling itchy: {{Yes* No}} If yes: peaches ?? History of severe reaction where had to go to ER? {{Yes No*}} If yes details: ?? Type of heat in home: {{Baseboard Forced Air* Radiator othe r}} Pets: {{Yes* No}} If yes:cat ?? Smoker: {{Yes Current* Never For helen}} If former smoker-how much ?? / day for how long ?? When quit ?? years ago Smoking now-how much ?? 5/day for how long 20 years ?? 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 Symptoms having: {{Congestion* Post Nasal Drip Headache Runn y Nose Cough Other}} If other: ?? Frequency {{Seasonally* Year Round}} Spirometry Contraindications: Heart attack in the last 3 months: {{Yes No*}} Major surgery in last 3 months: {{Yes No*}} Detached retina(serious eye issues) in last 2 months: {{Yes No*}} Hospitilization in last month: {{Yes No*}} Proceed with PFT {{Yes* No}} approval needed: {{Yes No*}} Nursing Notes: Pt tolerated test well {{Yes* No}} Benadryl cream to test sites {{Yes* No}} Patient became syncopal-placed in supine position {{Yes No*}} Large reactions to MQT, reschedule IDT for a different date {{Yes* No}} Other: ?? Written by: {{CHUYITA Verdin, CHIARA Bauer}} wendi Not available 12/31/2023 12:15:51 01/13/2024 [id number] Nursing Documentation for Allergy Testing (Split Test): Vital Signs: Blood Pressure:126/86 ?? Pulse: 69 ?? Oxygen Saturation: 98 % Weight:200 lbs:?? kg: ?? History of asthma: {{Yes No*}} Asthma Meds: ??. last used: ?? Chance that : {{Yes No N/A*}} Antihistamine use: {{Yes No*}} Med used: ?? Nursing notes: Patient tolerated procedure well {{Yes* No}} Benadryl cream to test sites {{Yes No*}} Patient became syncopal-placed in supine position {{Yes No*}} Testing Performed by: {{CHUYITA Verdin, CHIARA Bauer}} Requesting Provider {{Dr. Evelio Urrutia*}} skorzec Not available 01/13/2024 09:12:06 01/25/2024 [id number] sublingual immunotherapy regimen* [email or web address] Not available 02/02/2024 15:14:40 Reason for Referral None Reported. Results Created Date Observation Date Name Description Value Unit Range Abnormal Flag Note LastModifiedBy Organization Detail LastModifiedTime 12/22/19 24 audio gram No observ ation record ed. BARCODE Not Available 2023 09:21:47 Result Notes None recorded. Problems Name Problem SNOMED Code Status Onset Date Resolution Date Notes Provider Name and Address Organization Details Recorded Time Snoring 09225342 Active 2023 CHRISTINA DUVALL MD [address] [facility],[address], [place], [address], [facility] - [facility] 4 09:43:53 Deviated nasal septum 569665669 Active 2023 CHRISTINA DUVALL MD 100 [facility],[address], [place], [address], [facility] - [facility] 4 09:43:59 Allergic rhinitis 15080041 Active 2023 CHRISTINA DUVALL MD [address] [facility],[address], [place], [address], [facility] - [facility] [place] 4 09:44:09 Dysfunction of eustachian tube 77044869 Active 2023 CHRISTINA DUVALL MD [address] [facility],[address], [place], [address], [facility] - [facility] [place] 4 09:44:28 Sensorineural hearing loss 14275683 Active 2023 ANIYA FENG [address] [place],[address], [place], [address], [facility] - [facility] 4 10:10:12 Problem Notes None recorded. Procedures Surgical History Date Name Laterality Status Provider Name and Address Organization Details Recorded Time 01/13/20 24 Allergy Testing-Full completed JOSÉ LUIS BROWN, [facility] 100 [facility],[address], [address], [facility] 01/13/2024 09:31:37 12/31/19 24 Allergy Testing Modified- Quantitative Testing (MQT) Only completed JOSÉ LUIS BROWN [facility] 100 [facility],[address], [address], [facility] 12/31/2023 12:10:46 12/17/19 24 Comp Audio with Tymps (85614 & 45849) completed MOUNIKA VALLEJO [facility] 100 [facility],[place] [address], [place], [address], [facility] 12/17/2023 10:09:51 Imaging Results Imaging Date Name Status LastModified by Organiz ation Details LastModified Time 12/22/2023 audiogram completed BARCODE Information no t available 12/22/2023 09:21:47 Procedure Notes None recorded. Medical Equipment None [...] and Address Organization Details Last Updated DateTime 12/17/2023 180.34 cm 27.6 kg/m2 40961.29 g Sary Lester [place] - [facility] 12/17/2023 09:36:41 Date Recorded Body height Body mass index (BMI) Body weight Oxygen saturation Oxygen saturation in Arterial blood by Pulse oximetry Heart rate Heart rate Heart rate Systolic blood pressure Diastolic blood pressure Systolic blood pressure Diastolic blood pressure Systolic blood pressure Diastolic blood pressure Provider Name and Address Organization Details Last Updated DateTime 4 177.8 cm 28.7 kg/m2 02766.4 7 g 98 % 98 % 62 /min 66 /min 73 /min 144 mm[Hg] 96 mm[Hg] 145 mm[Hg] 97 mm[Hg] 153 mm[Hg] 100 mm[Hg] [facility] [address], [address] [place], [place] - [facility] 4 12:08:08 Date Recorded Body height Oxygen saturation Oxygen saturation in Arterial blood by Pulse oximetry Heart rate Systolic blood pressure Diastolic blood pressure Provider Name and Address Organization Details Last Updated DateTime 4 177.8 cm 98 % 98 % 69 /min 126 mm[Hg] 86 mm[Hg] JOSÉ LUIS VELIZ, LEVON [address] [place] [address], [address], [place] - [facility] 09:05:25 Date Recorded Body height Body mass index (BMI) Body weight Provider Name and Address Organization Details Last Updated DateTime 01/25/2024 177.8 cm 28.7 kg/m2 32055.47 g Sussy Gonzalez [facility] 01/25/2024 08:31:34 Date Recorded Body height Body mass index (BMI) Body weight Heart rate Systolic blood pressure Diastolic blood pressure Provider Name and Address Organization Details Last Updated DateTime 4 177.8 cm 28.7 kg/m2 86894.4 7 g 74 /min 139 mm[Hg] 93 mm[Hg] GRAYSON BORRERO RN [address] [place] [address], [address], [facility] 09:14:48 Social History None recorded. Functional Status None recorded. Mental Status None recorded. Family History Nothing Reported. Medical History Condition Response Hypertension Y High Cholesterol Y Past Encounters Encounter ID Performer Location Encounter Start Date Encounter Closed Date Diagnosis/Indication Diagnosis SNOMED-CT Code Diagnosis ICD10 Code [id number] CHRISTINA STOREY MD [facility] [address] [address] 12/17/2023 09:03:34 12/17/2023 11:17:48 Snoring 40734788 R06.83 Deviated nasal septum 12 3284298 J34.2 Dysfunctio n of eustachian tube 84305452 H69.93 Allergic rhinitis 488822 04 J30.9 Sensorineu ral hearing loss 20159831 H90.5 H90.42 [id number] JOSÉ LUIS VELIZ, MATEUSZA Allergy 100 [facility],[address] [place] [address] 12/31/2023 08:51:26 01/07/2024 16:10:31 Allergic rhinitis 69574974 J30.9 [id number] JOSÉ LUIS VELIZ, LEVON Allergy 100 [facility] 100 [facility] [place] [address] 01/13/2024 08:45:23 01/13/2024 11:00:10 Allergic rhinitis 34147253 J30.9 [id number] CHRISTINA STOREY MD [facility] 100 [facility] [place] [address] 01/25/2024 08:23:37 01/25/2024 08:40:47 Allergic rhinitis 80212142 J30.9 Deviated nasal septum 12 7983542 J34.2 Snoring 63321716 R06.83 [id number] GRAYSON BORRERO RN Allergy 100 [facility] 100 [facility] [place] [address] 02/01/2024 08:52:42 02/01/2024 10:00:08 Allergic rhinitis 05998306 J30.9 Health Concerns Section Related Observation LastModified by Organization Detai ls LastModified Time None Recorded Concern Status LastModified by Organization Details LastModified Time None Recorded Advance Directives Directive None Recorded Payers Encounter Date Sequence Insurance Name Policy Number Policy Downs Covered Member ID Downs Member ID Guarantor Name 12/17/2023 1 [facility] [id number] 1 Smita Gagan [id number] Smita Gagan 12/31/2023 1 [facility] [id number] Smita Gagan [id number] Smita Gagan 01/13/2024 1 [facility] [id number] Smita Naomieyk [id number] Smita Amandeepzynesyk 01/25/2024 1 [facility] [id number] 1 Smita Naomieyk [id number] Smita Amandeepzynesyk 02/01/2024 1 [facility] [id number] 1 Smita Gagan [id number] Smita Gagan Notes Date Note Type Note Provider Name and Address Organization Details Recorded Time 12/17/2023 text/html Patient previous ly seen by Dr. Urrutia in 2009 and 2010 for sinus disease. He comes in today for evaluation of ears and hearing. Feels nasal congestion, 2 bouts of ear fullness, head pressure and blockage in ears right > left. Today ok. No hearing issues. Chronic nasal congestion intermittently in nature. Allergy testing over 15 years ago. No SCIT.Presently Zyrtec. Prior trial of FP nasal. 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 He had a polysomnogram at home many years ago which was negative He had CT of sinuses in 2010 which showed chronic maxillary sinus disease SNOT-22=48NOSE=70ESS =10 CHRISTINA URRUTIA MD 100 [facility] 100, [place], [address], [place] - [facility] 12/17/2023 12:37:03 01/25/2024 text/html Chronic nasal congestion. Skin testing [...] mouth and narrow airway. CHRISTINA URRUTIA MD 100 [facility] 100, [place], [address], [place] - [facility] 01/25/2024 08:37:49
--- OUTSIDE RECORDS SUMMARY | 2024-04-12 16:51 | XMS_ITS | Continuity of Care Document ---
Author Organization [place] - [facility], Allergy Address [address] [address] Care Team Providers Care Sound Engineer Name Role Phone NANNETTE PANANNA Primary Care Provider [phone] Assessment No assessment recorded. Plan of Treatment Reminders Order Date Submit Date Provider Last Modified By Organization Details Last Modified Time Details Appointments [facility]- Allergy f-up 6mon 2024 08:30A M CHRISTINA DUVALL MD Not available Not available Not available Lab None recorded . Referral None recorded . Procedures None recorded . Surgeries None recorded . Imaging None recorded . Medication Orders None recorded . Patient TargetsNo targets recorded. Patient Instructions Encounter Date Encounter Id Patient Instructions Last Modified By Organization Details Last Modified Time 01/13/2024 [id number] Nursing Documentation for Allergy Testing (Split Test): [...] {{Yes No*}} Testing Performed by: {{CHUYITA Verdin, Donald* Cecily Bauer}} Requesting Provider {{Dr. Evelio Nuñez*}} skorcount includes the [facility] Not available 01/13/2024 09:12:06 Reason for Referral None Reported. Results Created Date Observation Date Name Description Value Unit Range Abnormal Flag Note LastModifiedBy Organization Detail LastModifiedTime 12/22/19 24 audio gram No observ ation record ed. BARCODE Not Available 2023 09:21:47 Result Notes None recorded. Problems Name Problem SNOMED Code Status Onset Date Resolution Date Notes Provider Name and Address Organization Details Recorded Time Snoring 86160707 Active 2023 CHRISTINA DUVALL MD [address], [place], [address], [facility] - [facility] 4 09:43:53 Deviated nasal septum 295897590 Active 2023 CHRISTINA DUVALL MD [address] [facility], [place], [address], [facility] - [facility] 4 09:43:59 Allergic rhinitis 32129339 Active 2023 CHRISTINA DUVALL MD [address], [place], [address], [facility] 4 09:44:09 Dysfunction of eustachian tube 04985420 Active 2023 CHRISTINA DUVALL MD [address], [place], [address], [facility] 4 09:44:28 Sensorineural hearing loss 72325989 Active 2023 ANIYA FENG [address], [facility] [place], [address], [facility] 4 10:10:12 Problem Notes None recorded. Procedures Surgical History Date Name Laterality Status Provider Name and Address Organization Details Recorded Time 01/13/20 24 Allergy Testing-Full completed JOSÉ LUIS VELIZ, RMA [address], [place], [address], [facility] - [facility] 01/13/2024 09:31:37 12/31/19 24 Allergy Testing Modified- Quantitative Testing (MQT) Only completed JOSÉ LUIS BROWNAnder, RMA 100 [email or web address] 100, [place], [address], [facility] 12/31/2023 12:10:46 12/17/19 24 Comp Audio with Tymps (06017 & 12880) completed MOUNIKA VALLEJO, AUD [facility] [place],[facility] [[email or web address] 100, [place], [address], [facility] 12/17/2023 10:09:51 Imaging Results None recorded. [...] Not Available Vitals Date Recorded Body height Oxygen saturation Oxygen saturation in Arterial blood by Pulse oximetry Heart rate Systolic blood pressure Diastolic blood pressure Provider Name and Address Organization Details Last Updated DateTime 4 177.8 cm 98 % 98 % 69 /min 126 mm[Hg] 86 mm[Hg] JOSÉ LUIS JOSE ALFREDO [address], [address] , [facility] 4 09:05:25 Social History None recorded. Functional Status None recorded. Mental Status None recorded. Family History Nothing Reported. Medical History Condition Response Hypertension Y High Cholesterol Y Past Encounters Encounter ID Performer Location Encounter Start Date Encounter Closed Date Diagnosis/Indication Diagnosis SNOMED-CT Code Diagnosis ICD10 Code [id number] CHRISTINA STOREY MD [facility] [address] [address] 12/17/2023 09:03:34 12/17/2023 11:17:48 Snoring 68746217 R06.83 Deviated nasal septum 12 6642364 J34.2 Dysfunctio n of eustachian tube 39525114 H69.93 Allergic rhinitis 125508 04 J30.9 Sensorineu ral hearing loss 36659193 H90.5 H90.42 [id number] JOSÉ LUIS VELIZ A Allergy [address] [place] [address] 12/31/2023 08:51:26 01/07/2024 16:10:31 Allergic rhinitis 61623740 J30.9 [id number] JOSÉ LUIS VELIZ [facility] [address] [place] [address] 01/13/2024 08:45:23 01/13/2024 11:00:10 Allergic rhinitis 45924803 J30.9 Health Concerns Section Related Observation LastModified by Organization Detai ls LastModified Time None Recorded Concern Status LastModified by Organization Details LastModified Time None Recorded Payers Encounter Date Sequence Insurance Name Policy Number Policy Downs Covered Member ID Downs Member ID Guarantor Name 01/13/2024 1 [facility] [id number] Smita Farah [id number] Smita Farah
== END 2024-04-06 09:50 | disposition home or self-care (01) ==
PROVIDERS: PCP Internal Medicine; Visit Provider Internal Medicine
DX: E78.5 Hyperlipidemia, unspecified (principal); I10 Essential (primary) hypertension

== ENCOUNTER 2024-10-28 08:14 | Outpatient (REF) | payer OTHER, SELFPAY ==
[2024-10-28 10:21] LABS: MANUAL DIFF FLAG NO
[2024-10-28 10:41] LABS: Basophils Percent Auto 0.8 % (0-2); Eosinophils Absolute Auto 0.2 X10*3/uL (0.0-0.4); Eosinophils Percent Auto 2.9 % (0-4); Hematocrit 47.4 % (42.0-52.0); Imm Gran Abs Auto 0.01 X10*3/uL (0.00-0.03); Imm Gran Pct Auto 0.2 % (0.0-0.4); Lymphocytes Absolute Auto 1.8 X10*3/uL (1.2-4.9); Lymphocytes Percent Auto 33.8 % (20-40); Mean Corpuscular HGB Conc 33.8 g/dl (31.0-36.0); Mean Corpuscular Volume 88.9 fL (80.0-98.0); Mean Platelet Volume 10.6 fL (9.4-12.4); Monocytes Absolute Auto 0.7 X10*3/uL (0.1-1.2); Neutrophils Absolute Auto 2.5 x10*3/uL (2.0-8.3); Neutrophils Percent Auto 48.3 % (45-73); Platelet Count 221 X10*3/uL (160-400); Red Blood Count 5.33 X10*6/uL (4.60-5.80); Red Cell Distribution Width 13.3 % (11.0-16.0); White Blood Count 5.2 X10*3/uL (4.8-10.8)
[2024-10-28 10:52] LABS: Cholesterol 153 mg/dL (<200); HDL Cholesterol 29 mg/dL (>40); Iron 74 mcg/dL (45-160); LDL Cholesterol Calculated 99 mg/dL (<100); Percent Iron Saturation 28 % (15-50); Total Iron Binding Capacity 263 mcg/dL (228-428); Triglycerides 128 mg/dL (<150); Unsaturated Iron Binding 189 ug/dL
== END 2024-10-28 08:15 | disposition home or self-care (01) ==
LOC: HO.HMGCLDS 08:14
PROVIDERS: PCP Internal Medicine; Visit Provider Internal Medicine
DX: Z00.00 Encounter for general adult medical examination without abnormal findings (principal); E78.5 Hyperlipidemia, unspecified
CPT/HCPCS: 36415; 80061; 83540; 85025

== ENCOUNTER 2024-11-01 13:05 | Outpatient (AMB) | payer OTHER, SELFPAY ==
[2024-11-01 13:33] VITALS: BP 120/80; PULSE 71; O2SAT 97; BMI 29.0
--- NOTE | 2024-11-01 13:33 | MHC.PC.OV ---
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 Accompanied by: Self / Same As Patient Allergies No Known Allergies Allergy (Verified 11/01/24 13:34) Medication List - Last Reconciled 11/01/24 by Therese Sheridan MD atorvastatin (Lipitor) 20 mg PO BEDTIME fish oil-dha-epa PO lisinopril 5 mg PO DAILY Tobacco use date assessed: 11/01/24 Dental Screening Dental Screen Date: 11/01/24 Did you have a dental visit in the last 12 months?: Yes Did you have a dental problem in the last 6 months where you did not have access to dental care?: No Was dental information given to patient?: Patient has dentist HPI Annual PE HPI Details Patient presents for physical [facility] Medical History (Updated 11/01/24 @ 13:51 by Therese Sheridan MD) Annual physical exam Hyperlipidemia Surgical History No pertinent past surgical history Family History Father No problems noted. Mother No problems noted. Brother Cardiomyopathy Social History Housing: House Patient Tobacco Use Status: Current someday Tobacco user Tobacco use type: Cigarette Cigarettes Per Day: 3 e-Cigarette/Vaping Use: Never Used service: No Current occupational status: employed Cognitive needs: No Hearing needs: No Vision needs: No Questionnaire PHQ-9 Over the last 2 weeks, how often have you been bothered by any of the following problems? 1. Little interest or pleasure in doing things: not at all 2. Feeling down, depressed, or hopeless: not at all 3. Trouble falling or staying asleep, or sleeping too much: not at all 4. Feeling tired or having little energy: not at all 5. Poor appetite or overeating: not at all 6. Feeling bad about yourself - or that you are a failure or have let yourself or your family down: not at all 7. Trouble concentrating on things, such as reading the newspaper or watching television: not at all 8. Moving or speaking so slowly that other people could have noticed. Or the opposite - being so fidgety or restless that you have been moving around a lot more than usual: not at all 9. Thoughts that you would be better off or of hurting yourself in some way: not at all Total score: 0 Depression Screening Interpretation: Negative Depression Screening Done: Yes 72016 - PHQ-9 Billing: Yes Source: Developed by Drs. Kit Baptiste, Francia Sol, Adal Ferraro and colleagues, with an educational maria teresa from [employer]. Thrive Questionnaire Date Thrive assessed: 11/01/24 I am a: Patient What is your living situation today?: I have a steady place to live Within the past 12 months, did the food you bought not last and you didn't have the money to get more?: Never true Within the past 12 months, did you worry whether your food would run out before you got money to buy more?: Never true Do you have trouble paying for medicines?: No Do you have trouble getting transportation to medical appointments?: No Do you have trouble paying your heating and electricity bill?: No Do you have trouble taking care of your child, family member or friend?: No Do you have trouble with day-to-day activities such as bathing, preparing meals, shopping, managing finances, etc.?: No Are you currently unemployed and looking for a job?: No Are you interested in more education?: No Please select the resources that you would like help with: None Currently or been in a relationship where the following occur: No concerns reported THRIVE Score: 0 AUDIT C Alcohol Use Questionnaire (AUDIT-C) 1. How often do you have a drink containing alcohol?: 2-4 times a month 2. How many drinks containing alcohol do you have on a typical day when you are drinking?: 3 or 4 3. How often do you have six or more drinks on one occasion?: Less than monthly Total Score: 4 Score Reviewed/Action Taken: Yes MADDIE-7 AMB Questionnaire MADDIE-7 Date MADDIE - 7 assessed: 11/01/24 Feeling nervous, anxious, or on edge: 0 = Not at all Not being able to stop or control worryin = Not at all Worrying too much about different things: 0 = Not at all Trouble relaxin = Not at all Being so restless that it is hard to sit still: 0 = Not at all Becoming easily annoyed or irritable: 0 = Not at all Feeling afraid as if something awful might happen: 0 = Not at all Total MADDIE-7 score (0-4 normal; 5-9 mild; 10-14 moderate; 15-21 severe): 0 Source: Developed by Drs. Kit Baptiste, Francia Sol, Adal Ferraro and colleagues, with an educational maria teresa from [employer]. MADDIE-7 Assessment Billing MADDIE-7 Assessment Tool: MADDIE-7 Assessment 40049 Review of Systems Const All systems reviewed & are unremarkable except as noted in HPI and below Reports no additional complaints Eyes Reports no additional complaints ENT Reports no additional complaints Card Reports no additional complaints Resp Reports no additional complaints GI Reports no additional complaints Reports no additional complaints Neuro Reports no additional complaints Physical exam (Primary Care) Vital Signs: Last Vital Signs Pulse 71 11/01/24 13:33 BP 120/80 11/01/24 13:33 Pulse Ox 97 11/01/24 13:33 Oxygen Delivery Method Room Air 11/01/24 13:33 BMI result Body Mass Index 29.0 Tobacco/Smoking Status: Tobacco use Status Tobacco use date assessed 11/01/24 11/01/24 13:36 Patient Tobacco Use Status Current someday Tobacco 11/01/24 13:36 Tobacco use type Cigarette 11/01/24 13:36 e-Cigarette/Vaping Use Never Used 11/01/24 13:36 PHQ-9: PHQ-9 Score PHQ-9: Total score 0 11/01/24 13:36 Depression Screening Interpretation: Negative Thrive Assessment: Date of Thrive Assessment Date Thrive assessed 11/01/24 11/01/24 13:36 Currently or been in a relationship where the following occur: No concerns reported Const General: no acute distress HENMT Head: Yes normal to inspection Face and sinus: Yes normal facial exam Throat: Yes posterior oropharynx normal Eyes General: appearance normal, both eyes and all related structures Neck Neck: Yes no lymphadenopathy and Yes supple Resp Effort & Inspection: normal respiratory effort Auscultation: clear to auscultation bilaterally Cardio Rhythm: regular rhythm Heart sounds: S1 normal heart sound present and S2 normal heart sound present GI Inspection: Yes normal to inspection Palpation (GI): Soft to palpation Percussion: Yes normal to percussion Auscultation: normal bowel sounds Coding Level of Care Code Est Pt Prev Care 40-64y(00058) Diagnoses HTN (hypertension) I10 Hyperlipidemia E78.5 Annual physical exam Z00.00 Additional Codes MADDIE-7 Assessment Billing - MADDIE-7 Assessment Tool: MADDIE-7 Assessment 03298 ([id number]) PHQ-9 - 50366 - PHQ-9 Billing: Yes ([id number]) Assessment & Plan Assessment & Plan (1) HTN (hypertension): Code(s): I10 - Essential (primary) hypertension Category: Medical Plan: Continue lisinopril (2) Hyperlipidemia: Code(s): E78.5 - Hyperlipidemia, unspecified Category: Medical Plan: Continue atorvastatin (3) Annual physical exam: Code(s): Z00.00 - Encounter for general adult medical examination without abnormal findings Category: Medical Plan: Well-balanced diet regular physical activity discussed with the patient. For colon cancer screening patient prefers to have Cologuard checked. He will return in 6 months with a fasting labs before Orders: Orders Lipid Panel 6 Months E78.5 - Hyperlipidemia, unspecified, I10 - Essential (primary) hypertension, Z00.00 - Encounter for general adult medical examination without abnormal findings Comprehensive Rotan. Panel Fast 6 Months E78.5 - Hyperlipidemia, unspecified, I10 - Essential (primary) hypertension, Z00.00 - Encounter for general adult medical examination without abnormal findings Complete Blood Count Auto Diff 6 Months E78.5 - Hyperlipidemia, unspecified, I10 - Essential (primary) hypertension, Z00.00 - Encounter for general adult medical examination without abnormal findings UA w Microscopic 6 Months E78.5 - Hyperlipidemia, unspecified, I10 - Essential (primary) hypertension, Z00.00 - Encounter for general adult medical examination without abnormal findings Referrals Cologuard Test Z12.11 - Encounter for screening for malignant neoplasm of colon, Z12.12 - Encounter for screening for malignant neoplasm of rectum Medications: Refilled atorvastatin (Lipitor) 20 mg PO BEDTIME 90 tabs 3RF lisinopril 5 mg PO DAILY 90 tabs 3RF
== END 2024-11-01 14:00 | disposition home or self-care (01) ==
LOC: HO.HMCC 13:06
PROVIDERS: PCP Internal Medicine; Visit Provider Internal Medicine
DX: I10 Essential (primary) hypertension (principal); E78.5 Hyperlipidemia, unspecified; Z00.00 Encounter for general adult medical examination without abnormal findings

== ENCOUNTER → 2024-11-01 13:05 | Outpatient (BNVA) | payer OTHER, SELFPAY | PROVIDERS: PCP Internal Medicine; Visit Provider Internal Medicine | DX: Z00.00 Encounter for general adult medical examination without abnormal findings (principal); I10 Essential (primary) hypertension; E78.5 Hyperlipidemia, unspecified | CPT/HCPCS: 96127 ==